=== PATIENT | female | born 1955 | race Caucasian/White ===

== ENCOUNTER 2016-05-02 14:01 | Emergency (ER) | payer OTHER ==
[2016-05-02 14:05] VITALS: TEMP 98.4; BMI 39.1
--- NOTE | 2016-05-02 15:16 | PDOC ---
History of Present Illness - General History Source: Patient, Family - History of Present Illness Initial Comments: 05/02/16 15:38 The patient is a 60-year-old woman, accompanied by family, with a significant past medical history of hypertension and diabetes mellitus who presents to the emergency department for further evaluation of hyperglycemia. As per patient's family member, the patient measured her blood glucose at home, as she felt dizzy and extremely thirsty for the past 2-3 days. Patient's blood glucose was "386". [place] (from [place]) and is currently applying for insurance. Patient;s relative expresses concern of recent changes in medications might've started her symptoms, as the patient was complaint with an oversea medication BID and was recently changed to Metformin. No fever, chills, chest pain, abdominal pain, nausea, vomiting. Allergies: None Known Past Surgical History: Cholecystectomy Social History: No tobacco, ETOH and recreational drug use. <Leola Duval - Last Filed: 05/02/16 15:50> <Malia Jensen - Last Filed: 05/02/16 18:30> <Kayla Roman - Last Filed: 05/03/16 10:31> - General Chief Complaint: Blood Sugar Problem Stated Complaint: HIGH SUGAR Time Seen by Provider: 05/02/16 14:42 Past History <Leola Duval - Last Filed: 05/02/16 15:50> <Malia Jensen - Last Filed: 05/02/16 18:30> - Past Medical History Diabetes: Yes HTN: Yes - Surgical History Cholecystectomy: Yes - Psycho/Social/Smoking Cessation Hx Suicidal Ideation: No Smoking History: Never smoked Hx Alcohol Use: No Drug/Substance Use Hx: No <Kayla Roman - Last Filed: 05/03/16 10:31> - Past Medical History Allergies/Adverse Reactions: Allergies Allergy/AdvReac Type Severity Reaction Status Date / Time No Known Allergies Allergy Unverified 05/02/16 14:05 Home Medications: Ambulatory Orders Bisoprolol Fumarate [Zebeta (Nf) -] 5 mg PO DAILY 05/02/16 Non-Formulary 1 tab PO BID 05/02/16 Valsartan/Hydrochlorothiazide [Valsartan-Hctz 80-12.5 mg Tab] 1 each PO DAILY Review of Systems - Review of Systems Able to Perform ROS?: Yes Comments:: 05/02/16 15:38 GENERAL/CONSTITUTIONAL: No fever or chills. No weakness. HEAD, EYES, EARS, NOSE AND THROAT: No change in vision. No ear pain or discharge. No sore throat. CARDIOVASCULAR: No chest pain or shortness of breath. RESPIRATORY: No cough, wheezing, or hemoptysis. GASTROINTESTINAL: No nausea, vomiting, diarrhea or constipation. GENITOURINARY: No dysuria, frequency, or change in urination. MUSCULOSKELETAL: No joint or muscle swelling or pain. No neck or back pain. SKIN: No rash NEUROLOGIC: Yes: +Dizziness. No headache, vertigo, loss of consciousness ENDOCRINE: Yes: +Increased thirst. No abnormal weight change. HEMATOLOGIC/LYMPHATIC: No anemia, easy bleeding, or history of blood clots. ALLERGIC/IMMUNOLOGIC: No hives or skin allergy. <Leola Duval - Last Filed: 05/02/16 15:50> *Physical Exam - Vital Signs Last Vital Signs Temp Pulse Resp BP Pulse Ox 98.4 F 83 18 146/80 99 05/02/16 14:02 05/02/16 14:02 05/02/16 14:02 05/02/16 14:02 05/02/16 14:02 - Physical Exam Comments: 05/02/16 15:39 GENERAL: Awake, alert, and fully oriented, in no acute distress HEAD: No signs of trauma EYES: PERRLA, EOMI, sclera anicteric, conjunctiva clear ENT: Auricles normal inspection, hearing grossly normal, nares patent, oropharynx clear without exudates. Dry mucosa NECK: Normal ROM, supple, no lymphadenopathy, JVD, or masses LUNGS: Breath sounds equal, clear to auscultation bilaterally. No wheezes, and no crackles HEART: Regular rate and rhythm, normal S1 and S2, no murmurs, rubs or gallops ABDOMEN: Soft, nontender, normoactive bowel sounds. No guarding, no rebound. No masses EXTREMITIES: Normal range of motion, no edema. No clubbing or cyanosis. No cords, erythema, or tenderness NEUROLOGICAL: Cranial nerves II through XII grossly intact. <Leola Duval - Last Filed: 05/02/16 15:50> - Vital Signs Last Vital Signs Temp Pulse Resp BP Pulse Ox 98.4 F 83 18 146/80 99 05/02/16 14:02 05/02/16 14:02 05/02/16 14:02 05/02/16 14:02 05/02/16 14:02 <Malia Jensenh - Last Filed: 05/02/16 18:30> - Vital Signs Last Vital Signs Temp Pulse Resp BP Pulse Ox 98.4 F 83 18 146/80 99 05/02/16 14:02 05/02/16 14:02 05/02/16 14:02 05/02/16 14:02 05/02/16 14:02 <Kayla Roman - Last Filed: 05/03/16 10:31> ED Treatment Course - LABORATORY CBC & Chemistry Diagram: 05/02/16 15:50 05/02/16 16:54 - ADDITIONAL ORDERS Additional order review: Laboratory Results 05/02/16 05/02/16 05/02/16 16:54 16:10 16:00 Sodium 136 Cancelled Potassium 3.4 L Cancelled Chloride 100 Cancelled Carbon Dioxide 28 Cancelled Anion Gap 8 Cancelled BUN 14 Cancelled Creatinine 0.8 Cancelled Creat Clearance w eGFR > 60 Cancelled Random Glucose 327 H* Cancelled Calcium 8.8 Cancelled Total Bilirubin 0.6 Cancelled AST 12 L Cancelled ALT 27 Cancelled Alkaline Phosphatase 100 Cancelled Total Protein 7.7 Cancelled Albumin 3.7 Cancelled Urine Color Ltyellow Urine Appearance Clear Urine pH 5.0 Ur Specific [place] 1.022 Urine Protein Negative Urine Glucose (UA) 3+ H Urine Ketones Negative Urine Blood 2+ H Urine Nitrite Negative Urine Bilirubin Negative Urine Urobilinogen Negative Ur Leukocyte Esterase 2+ H Urine RBC 2 Urine WBC 3 Ur Epithelial Cells Rare Urine Mucus Rare Acetone, Qual Cancelled 05/02/16 15:50 Sodium Cancelled Potassium Cancelled Chloride Cancelled Carbon Dioxide Cancelled Anion Gap Cancelled BUN Cancelled Creatinine Cancelled Creat Clearance w eGFR Cancelled Random Glucose Cancelled Calcium Cancelled Total Bilirubin Cancelled AST Cancelled ALT Cancelled Alkaline Phosphatase Cancelled Total Protein Cancelled Albumin Cancelled Urine Color Urine Appearance Urine pH Ur Specific [place] Urine Protein Urine Glucose (UA) Urine Ketones Urine Blood Urine Nitrite Urine Bilirubin Urine Urobilinogen Ur Leukocyte Esterase Urine RBC Urine WBC Ur Epithelial Cells Urine Mucus Acetone, Qual Cancelled 05/02/16 15:50 RBC 5.67 H MCV 78.6 L MCHC 32.7 RDW 14.0 MPV 9.2 Neutrophils % 69.4 Lymphocytes % 20.0 Monocytes % 6.9 Eosinophils % 2.8 Basophils % 0.9 - Medications Given in the ED: ED Medications Discontinued Medications Generic Name Dose Route Start Last Admin Trade Name Virgil PRN Reason Stop Dose Admin Sodium Chloride 2,000 mls @ 1,000 mls/hr 05/02/16 15:32 05/02/16 15:54 Normal Saline - IV 05/02/16 17:31 1,000 mls/hr ASDIR STA Administration Metformin HCl 500 mg 05/02/16 18:12 05/02/16 18:27 Glucophage - PO 05/02/16 18:13 500 mg ONCE ONE Administration <Malia Jensen - Last Filed: 05/02/16 18:30> - LABORATORY CBC & Chemistry Diagram: 05/02/16 15:50 05/02/16 16:54 <Kayla Roman - Last Filed: 05/03/16 10:31> Medical Decision Making - Medical Decision Making 05/02/16 17:[address] Jensen. F/u CMP (it has hemolyzed twice already), reassess. Likely DC home. She was previously put on glipizide 2.5/metformin 500 combo pill by a family friend. I have sent rx for glipizide 5/metformin 500 to her pharmacy and will give her follow-up information for the [facility]. <Kayla Roman - Last Filed: 05/03/16 10:31> *DC/Admit/Observation/Transfer - Attestations Scribe Attestion: 05/02/16 15:39 Documentation prepared by Leola Duval, acting as certified medical dosimetrist for Kayla Roman MD. 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
[2016-05-02] MEDS ORDERED: SODIUM CHLORIDE 2,000 ML IV STA (15:32)
[2016-05-02 15:54] LABS: BASOPHIL 0.9 % (0-2.0); EOSINOPHIL 2.8 % (0-4.5); MCH 25.7 pg (25.7-33.7); MCHC 32.7 g/dl (32.0-36.0); MEAN CELL VOLUME 78.6 fl (80-96); MEAN PLT VOLUME 9.2 fl (7.5-11.1); NEUTROPHILS 69.4 % (42.8-82.8); PLATELET COUNT 245 K/MM3 (134-434); WHITE BLOOD COUNT 9.7 K/mm3 (4.0-10.0)
[2016-05-02 16:13] LABS: URINE APPEARANCE CLEAR; URINE BILIRUBIN NEGATIVE (NEGATIVE); URINE BLOOD 2+ (NEGATIVE); URINE COLOR LTYELLOW; URINE GLUCOSE (UA) 3+ (NEGATIVE); URINE KETONE NEGATIVE (NEGATIVE); URINE NITRITE NEGATIVE (NEGATIVE); URINE PROTEIN NEGATIVE (NEGATIVE); URINE UROBILINOGEN NEGATIVE E.U./dl (0.2-1.0)
[2016-05-02 16:14] LABS: URINE LEUK ESTERASE 2+ (NEGATIVE)
[2016-05-02 16:15] LABS: URINE MUCUS RARE; URINE RBC 2 /hpf (0-3); URINE WBC 3 /hpf (3-5)
[2016-05-02 17:26] LABS: ALBUMIN 3.7 g/dl (3.4-5.0); ANION GAP 8 (8-16); BILIRUBIN,TOTAL 0.6 mg/dL (0.2-1.0); CALCIUM 8.8 mg/dL (8.5-10.1); CO2 28 mmol/L (21-32); CREATININE 0.8 mg/dL (0.55-1.02); SGOT/AST 12 U/L (15-37); SGPT/ALT 27 U/L (12-78); TOT PROT 7.7 g/dl (6.4-8.2)
[2016-05-02 17:27] LABS: ALK PHOS 100 U/L (45-117)
[2016-05-02 17:30] LABS: GLUCOSE,RANDOM 327 mg/dL (74-106)
[2016-05-02] MEDS ORDERED: metFORMIN HCL 500 MG TABLET (FP) PO ONE (18:12)
[2016-05-02] MEDS ORDERED: metFORMIN HCL 500 MG TABLET (FP) ONE (18:26)
[2016-05-02 18:56] VITALS: BP 135/80; PULSE 63
[2016-05-02 19:01] LABS: ACETONE SERUM NEGATIVE (NEGATIVE)
== END 2016-05-02 18:56 | disposition home or self-care (01) ==
LOC: JER 14:01
PROC: 3E0337Z Introduction of Electrolytic and Water Balance Substance into Peripheral Vein, Percutaneous Approach (ICD-10-PCS; principal; 2016-05-02)
DX: E11.65 Type 2 diabetes mellitus with hyperglycemia (principal); I10 Essential (primary) hypertension
CPT/HCPCS: 36415; 80053; 81003; 81015; 82009; 85025; 96360; 96361; 99283-25

== ENCOUNTER 2018-12-19 09:34 | Day surgery (SDC) | payer OTHER ==
[2018-12-18 10:07] VITALS: BMI 36.3
[2018-12-19 10:10] LABS: BASO % 0.7 % (0-2.0); HEMATOCRIT 38.9 % (32.4-45.2); HEMOGLOBIN 12.9 GM/dL (10.7-15.3); LYMPH % 16.9 % (8-40); MCH 26.8 pg (25.7-33.7); MCHC 33.2 g/dl (32.0-36.0); MEAN CELL VOLUME 80.7 fl (80-96); MEAN PLT VOLUME 8.7 fl (7.5-11.1); NEUT % 68.4 % (42.8-82.8); RBC 4.82 M/mm3 (3.60-5.2); RDW 14.2 % (11.6-15.6); WHITE BLOOD COUNT 7.8 K/mm3 (4.0-10.0)
[2018-12-19 10:23] LABS: INR 0.93 (0.83-1.09)
[2018-12-19 10:24] LABS: PLATELET COUNT 222 K/MM3 (134-434)
[2018-12-19 16:24] VITALS: TEMP 97.9
[2018-12-19 17:09] VITALS: BP 122/74; PULSE 66
--- NOTE | 2018-12-22 12:16 | PATH ---
Cytology Non-Gynecological Report Patient Name: KENNA HOUSTON [facility]. Rec. #: [id number] /Age/Gender: 1955 (Age: 63) / F Account: [id number] Location: [facility] Taken: 12/20/2018 Received: 12/21/2018 Reported: 12/22/2018 Physicians: Ginny Gomez MD Specimen(s) Received MISCELLANEOUS FLUID LIVER LESION Clinical History Liver cysts Final Diagnosis LIVER LESION, FLUIDS FOR CYTOLOGY: NO MALIGNANT CELLS IDENTIFIED. BLOOD AND RARE DEGENERATIVE CELLS. Electronically Signed Keya Galvez M.D. Gross Description Approximately 20cc of yellow fluid received fixed in 50% alcohol. One cytofunnel and one cellblock prepared.
--- NOTE | 2018-12-22 19:36 | PATH ---
Surgical Pathology Report Patient Name: KENNA HOUSTON [facility]. Rec. #: [id number] /Age/Gender: 1955 (Age: 63) / F Account: [id number] Location: [facility] SURG[facility] Taken: 12/19/2018 Received: 12/20/2018 Reported: 12/22/2018 Physicians: Edith Titus MD Specimen(s) Received LIVER BIOPSY Clinical History 63 year old female with liver cysts, complex left hepatic lobe lesion Final Diagnosis LIVER BIOPSY: NECROTIC TISSUE AND ADJACENT REACTIVE FIBROTIC TISSUE. Comment: Minute material showing predominantly necrotic tissue, insufficient for diagnosis. Suggest clinical correlation. Electronically Signed Keya Galvez M.D. Gross Description Received in formalin, labeled "liver biopsy" it a portion of zheng, cylindrical soft tissue measuring 0.2 cm. in length and 0.1 cm in diameter. A portion of thin, white floating material measuring 0.5 cm greatest dimension is also present. The specimen is submitted in toto in one cassette. MERLENE/12/21/2018 niko/12/21/2018
== END 2018-12-19 17:00 | disposition home or self-care (01) ==
LOC: JASU-SURG 09:34
PROVIDERS: ATTEND Internal Medicine
PROC: BF45ZZZ Ultrasonography of Liver (ICD-10-PCS; principal; 2018-12-19)
PROC: 0F923ZX Drainage of Left Lobe Liver, Percutaneous Approach, Diagnostic (ICD-10-PCS; 2018-12-19)
DX: Q44.6 Cystic disease of liver (principal)
CPT/HCPCS: 36415; 76942-TC; 82962; 85025; 85610; 87899; 88108; 88305-TC

== ENCOUNTER 2019-06-07 06:08 | Day surgery (SDC) | payer OTHER ==
[2019-06-05 15:50] VITALS: BMI 36.0
[2019-06-07] MEDS ORDERED: ACETAMINOPHEN 325 MG TABLET (FP) PO PRN (07:53)
[2019-06-07] MEDS ORDERED: IBUPROFEN 400 MG TABLET (FP) PO PRN (07:53)
--- NOTE | 2019-06-07 07:53 | HP ---
History & Physical Update - History History: No Change - Physical Physical: No Change - Assessment Assessment: No Change - Plan Plan: No Change (No change in HP)
[2019-06-07] MEDS ORDERED: MIDAZOLAM HCL 2 MG/2 ML SINGLE DOSE VIAL ONE (07:57)
[2019-06-07] MEDS ORDERED: PROPOFOL 20 ML ONE (07:57)
[2019-06-07] MEDS ORDERED: LIDOCAINE HCL/PF 2% SDV 5ML VIAL ONE (07:58)
[2019-06-07] MEDS ORDERED: DESFLURANE GAS 240 ML BOTTLE IH ONE (08:10)
[2019-06-07] MEDS ORDERED: SEVOFLURANE 250 ML BTL ONE (08:10)
[2019-06-07] MEDS ORDERED: PROMETHAZINE HCL 25 MG/1 ML VIAL IVPB PRN (09:07)
[2019-06-07] MEDS ORDERED: ONDANSETRON 4 MG/2 ML VIAL IVPUSH PRN (09:07)
[2019-06-07] MEDS ORDERED: oxyCODONE HCL 5 MG TABLET PO PRN ×2 (09:07)
--- NOTE | 2019-06-07 09:31 | OP ---
Operative Note - Note: Operative Date: 06/07/19 Pre-Operative Diagnosis: Postmenopausal bleeding Operation: HYsteroscopic myomectomy. Suction DC Post-Operative Diagnosis: Same as Pre-op Anesthesia: General Estimated Blood Loss (mls): 3
--- NOTE | 2019-06-07 13:09 | OP ---
DATE OF OPERATION: 06/07/2019 PREOPERATIVE DIAGNOSIS: Cervical polyp and cervical myoma. POSTOPERATIVE DIAGNOSIS: Cervical polyp, cervical myoma, postmenopausal bleeding. SURGEON: Lupe Clark MD OPERATION: Hysteroscopic myomectomy, suction dilation and curettage. ANESTHESIA: General. ESTIMATED BLOOD LOSS: 3 mL. DESCRIPTION OF PROCEDURE: Patient was taken to the operating room, placed in dorsal lithotomy position. Prepped and draped in the usual sterile fashion. A time-out was performed in accordance with hospital regulation. Speculum was placed in the vagina. Anterior lip of the cervix was grasped with a single-tooth tenaculum. Large cervical polyp was seen. Hysteroscopy was then inserted. Hysteroscopic myomectomy was also performed. Cervical myoma was seen and cauterized and removed. Endometrial cavity appeared normal. No polyps or endometrial pathology seen. All instruments were then removed after suction dilation and curettage had been performed. Patient had tolerated procedure well and was taken to recovery room in stable condition. LUPE CLARK M.D. [id number]
[2019-06-07 13:48] VITALS: BP 132/73; PULSE 72; TEMP 98
--- NOTE | 2019-06-08 19:12 | PATH ---
Surgical Pathology Report Patient Name: KENNA HOUSTON [facility]. Rec. #: [id number] /Age/Gender: 1955 (Age: 63) / F Account: [id number] Location: [facility] Taken: 06/07/2019 Received: 06/07/2019 Reported: 06/08/2019 Physicians: Lupe Clark M.D. Specimen(s) Received CERVICAL MYOMA, POLYP Clinical History Postmenopausal bleeding/cervical polyp Final Diagnosis CERVICAL MYOMA/POLYP, EXCISION: ENDOCERVICAL POLYP, FRAGMENTS. Electronically Signed Keya Galvez M.D. Gross Description Received in formalin labeled "cervical myoma/polyp," is a 1.8 x 0.9 x 0.3 cm pink-zheng, polypoid portion of soft tissue. Also received within the same container is a 1.2 x 0.6 x 0.2 cm aggregate of zheng, firm tissue fragments. The specimen is submitted in toto in one cassette. /06/07/2019 [facility]06/07/2019
== END 2019-06-07 11:45 | disposition home or self-care (01) ==
LOC: JASU-SURG 06:08
PROVIDERS: ATTEND Obstetrics & Gynecology
PROC: 0UDB8ZX Extraction of Endometrium, Via Natural or Artificial Opening Endoscopic, Diagnostic (ICD-10-PCS; 2019-06-07)
PROC: 0UB98ZZ Excision of Uterus, Via Natural or Artificial Opening Endoscopic (ICD-10-PCS; principal; 2019-06-07 07:30)
PROC: 0UBC8ZX Excision of Cervix, Via Natural or Artificial Opening Endoscopic, Diagnostic (ICD-10-PCS; 2019-06-07 07:30)
DX: D25.9 Leiomyoma of uterus, unspecified (principal); N84.1 Polyp of cervix uteri
CPT/HCPCS: 82962; 88305-TC; 94760

== ENCOUNTER 2019-10-18 16:06 | Emergency (ER) | payer OTHER ==
[2019-10-18 16:29] VITALS: BP 164/85; PULSE 78; TEMP 98.4; BMI 34.7
== END 2019-10-18 17:42 | disposition home or self-care (01) ==
LOC: JERFT 16:06 → JER 16:06 → JERFT 17:42
DX: L02.31 Cutaneous abscess of buttock (principal)
CPT/HCPCS: 99282-25

== ENCOUNTER → 2020-10-01 | Day surgery (SDC) | payer OTHER | END | disposition home or self-care (01) | LOC: JRADUS-SUR 08:30 | PROVIDERS: ATTEND Internal Medicine | PROC: 0H9U3ZX Drainage of Left Breast, Percutaneous Approach, Diagnostic (ICD-10-PCS; principal; 2020-10-01) | DX: C50.912 Malignant neoplasm of unspecified site of left female breast (principal) | CPT/HCPCS: 19083; 19084; 77065-TC; 87899; 88305-TC; 88307-TC; 88342-TC; A4648 ==